=== PATIENT | female | born 1970 | race Hispanic/Latino ===

== ENCOUNTER 2018-09-29 12:57 | Outpatient (CLI) | payer OTHER | END 2018-09-29 12:58 | disposition home or self-care (01) | LOC: C.PAT 12:57 | DX: N94.9 Unspecified condition associated with female genital organs and menstrual cycle (principal); R10.2 Pelvic and perineal pain ==

== ENCOUNTER 2018-10-01 07:32 | Observation (INO) | payer OTHER ==
[2018-10-01 08:28] VITALS: BMI 26.5
[2018-10-01] MEDS ORDERED: Propofol 10 mg/ml Inj (20 ML) ONE ×2 (08:30→08:31)
[2018-10-01] MEDS ORDERED: Midazolam 2 MG/2 ML VIAL ONE (08:31)
[2018-10-01] MEDS ORDERED: Bupivacaine 0.25% 20 ML INJ IJ ONE (09:01)
[2018-10-01] MEDS ORDERED: Lidocaine/Epinephrine 1% 1:100000 10 ML IJ ONE (09:02)
[2018-10-01] MEDS ORDERED: ceFAZolin 1 gm in NS 2 GM/200 ML BAG IVPB ONE (09:21)
[2018-10-01] MEDS ORDERED: Rocuronium 10 mg/ml (5 ml) ONE (09:48)
[2018-10-01] MEDS ORDERED: Bupivacaine HCl 0.5% PF (10 ml) Inj ONE (11:35)
[2018-10-01] MEDS ORDERED: Oxycodone/Acetaminophen 5/325 mg Tab PO PRN ×2 (12:31→13:23)
[2018-10-01] MEDS ORDERED: BUPIVACAINE 0.125%/0.9% NACL 600 ML IJ ONE (13:00)
[2018-10-01] MEDS: HYDROmorphone 0.5 mg/0.5 ml ISec IVP PRN ×2 (13:09→13:32)
[2018-10-01] MEDS ORDERED: Lactated Ringer's 1,000 ML IV SCH (13:30)
[2018-10-01] MEDS ORDERED: cefOXitin IV 1 gm in Dextrose 1 GM/50 ML BAG IVPB SCH (14:00)
[2018-10-01] MEDS: cefOXitin IV 1 gm in Dextrose 1 GM/50 ML BAG IVPB SCH (18:21)
[2018-10-02] MEDS: cefOXitin IV 1 gm in Dextrose 1 GM/50 ML BAG IVPB SCH ×2 (01:18→08:22)
[2018-10-02] MEDS ORDERED: Levothyroxine 25 MCG TAB PO SCH (06:30)
[2018-10-02 08:17] LABS: BASO % 0.5 % (0.0-2.0); EOS # 0.1 K/uL (0.0-0.7); EOS % 0.9 % (0.0-4.0); HEMOGLOBIN 11.6 g/dL (11.0-16.0); LYMPH # 0.9 K/uL (1.0-4.3); LYMPH % 12.5 % (20.0-40.0); MEAN PLATELET VOLUME 9.3 fL (7.2-11.7); MONO # 0.7 K/uL (0.0-0.8); MONO % 9.6 % (0.0-10.0); NEUT # 5.8 K/uL (1.8-7.0); NEUT % 76.5 % (50.0-75.0); RBC 3.87 Mil/uL (3.80-5.20); RED CELL DISTRIBUTION WIDTH 13.1 % (11.5-14.5); WHITE BLOOD COUNT 7.5 K/uL (4.8-10.8)
[2018-10-02 08:25] LABS: BLOOD UREA NITROGEN 12 mg/dL (7-17); CALCIUM 8.5 mg/dl (8.6-10.4); GFR NON-AFRICAN AMERICAN > 60
[2018-10-02 08:31] VITALS: BP 95/86; PULSE 85; RESP 18; TEMP 98.4; O2SAT 99
[2018-10-02] MEDS ORDERED: Potassium Chloride 20 mEq ER Tab PO ONE (10:00)
[2018-10-02] MEDS ORDERED: Simethicone 80 mg Chewtab PO SCH (14:00)
--- NOTE | 2018-10-06 13:56 | OP ---
PROCEDURE DATE: 10/01/2018 PREOPERATIVE DIAGNOSES: Pelvic pain, adnexal mass, ovarian cyst, bladder pain, bladder pressure, adhesion. POSTOPERATIVE DIAGNOSES: Pelvic pain, adnexal mass, ovarian cyst, bladder pain, bladder pressure, adhesion with retroperitoneal fibrosis. PROCEDURE PERFORMED: Total robotic hysterectomy, bilateral salpingectomy, left oophorectomy, cystoscopy, bilateral ureteral stent, catheterization, bilateral ureterolysis, lysis of adhesions of enlarged 250 g uterus. SURGEON: Destiny Cruz MD CLINICAL DATA SPECIALIST: JASON Orellana TYPE OF ANESTHESIA: General endotracheal. OPERATIVE FINDINGS: Enlarged uterus, normal appearing tubes, abnormal appearing large left adnexal mass 10 cm adherent to the left pelvic sidewall, right ovary appeared normal adherent to pelvic sidewall as well, adhesions noted of omentum to anterior abdominal wall. ESTIMATED BLOOD LOSS: 50 mL. SPECIMEN: Uterus, left and right fallopian tube, left ovary with left ovarian cyst. URINE OUTPUT: 1200 mL. Emily Kaminski, neurosurgical nurse practitioner, was present for the entire case essential in gaining entry, retractions, exposure for robotic entry, docking the robot, removing the specimen, obtaining hemostasis, closing all layers and was present for the entire case. DESCRIPTION OF PROCEDURE: The patient was taken to the operating room where she was given general anesthesia. Once it was found to be adequate, she was placed on the operating table in dorsal supine position with legs supported using stirrups. The patient was then prepped and draped in the usual sterile fashion. A timeout was performed to confirm correct patient and correct procedure. Bimanual exam was performed with the above-mentioned findings. The patient was given preoperative prophylactic antibiotics. After that time-out was performed, a cystoscope was then inserted into the urethra. There were bilateral ureteral jets noted. No trigone noticed. No masses. No abnormalities noted. Bilateral ureteral jets were noted. A stent was then placed which was advanced appropriately and 5 mL of IC-Green was then inserted on either side. The cystoscope was then removed and a Jacobo catheter was then inserted. Following this, the patient was then placed in Trendelenburg position. The Garces retractor was placed on the anterior and posterior fornix of the vagina. The cervix was adequately visualized. A single-tooth tenaculum was placed on the anterior lip of the cervix. The uterus was then sounded to 10 cm. Following this, the cervix was sequentially dilated to allow for introduction of the VCare uterine manipulator which was insufflated with 10 mL of air. The Green cup was then carefully applied to the cervix had been removed. The patient's legs were then repositioned. The surgeon then re-gloved and attention was then turned to the abdomen. A supraumbilical skin incision was made 8 mm after the administration of local anesthetic, the fascia was then tented with two Benny clamps, this fascial incision was made. Consuelo device was then inserted . The trocar was then inserted. The abdomen was then insufflated with a normal opening pressure of 50 mmHg. The laparoscope was then inserted. There were adhesions noted with an enlarged left adnexal mass adherent to the pelvic sidewall and enlarged uterus. Following this, an 8-mm skin incision was placed in the right lower quadrant after the administration of left lower quadrant and a 12-mm skin incision was made in the left upper quadrant as accessory port. A blunt trocar was then inserted. The bowels were then retracted out of the visual field; and using a LigaSure device, omental adhesions were noted to the anterior abdominal wall which were carefully lysed. Following this, there was set of visualization of the uterine cavity. The operative da Kentrell device was then docked as per appropriate protocol. The endoscope was then targeted, placed in the second arm. A Monopolar device was then inserted into arm 3, vessel seal was placed in 1. Following this, the assistant basketball coach was used to manipulate the uterus in the anteverted retraction. Initially, there was left pelvic adnexal mass noted to the pelvic sidewall which was adherent. The IP ligament was identified and the ureter were carefully dissected using IC-Green as there was extensive retroperitoneal fibrosis. Once the ureter was carefully dissected, the IP ligament was able to be cauterized using LigaSure device away from the ureter. After it was cauterized and cut, the uterine ovarian ligament was cauterized and cut carefully using the vessel seal device and the left adnexa was removed within a bag specimen and placed into the cul-de-sac. Following this, the round ligament on the left side was carefully cauterized and cut and the anterior portion of the broad ligament was dissected using the monopolar device. The round ligament on the right side was cauterized and cut using the vessel seal device. The right ovary was adherent to the pelvic sidewall, and in similarity, the ureter was noted to be in close proximity. The ureterolysis was then performed and the utero-ovarian was ligated, cut, cauterized and removed. In addition, along the mesosalpinx of the fallopian tube which was carefully dissected and cut using the LigaSure device. The anterior portion of the broad on the right side was carefully dissected to continuation of the bladder flap. The uterine arteries were then carefully dissected and cauterized using the LigaSure device. An anterior colpotomy was performed using the MyoSure device and carefully continued posterior 360 degrees until the specimen had been completely amputated. Following this, the specimen had been removed through the vagina with right fallopian tube, the uterus and cervix in addition to the left tube and ovary in the EndoCatch bag. All specimens had been removed. A V-Loc suture was then used 6 inches to close the vaginal cuff in a continuous manner. After the cuff had been reapproximated and closure with thorough irrigation, there was good hemostasis noted. The IC-Green was then re-elicited. All instruments were removed. The abdomen was desufflated. The fascia of the 12-mm and the supraumbilical incision was reapproximated and closed using a Ur 6-0 Vicryl. The skin was reapproximated and closed with 4-0 Monocryl in a subcuticular fashion. The abdomen was cleaned. Steri-Strips applied and island dressing were placed. Following this, after all of the trocars had been removed and the operative da Kentrell robot had been undocked and the skin had been closed, Jacobo catheter had been removed. The cystoscope was then reinserted and bilateral ureteral jets noted. The cystoscope and Jacobo were re-introduced. At the end of the procedure, all needles, sponge, and instrument counts were noted as correct x2. The patient tolerated the procedure well and was transferred to the recovery room in stable condition. Destiny Cruz MD
== END 2018-10-02 15:16 | disposition hospice, home (50) ==
LOC: C.SDS 07:32 → C.4M 12:31
PROVIDERS: ADMIT Obstetrics & Gynecology; ATTEND Obstetrics & Gynecology
DX: N94.9 Unspecified condition associated with female genital organs and menstrual cycle (principal); R10.2 Pelvic and perineal pain; N83.209 Unspecified ovarian cyst, unspecified side; K66.0 Peritoneal adhesions (postprocedural) (postinfection); N73.6 Female pelvic peritoneal adhesions (postinfective); N85.2 Hypertrophy of uterus; N13.5 Crossing vessel and stricture of ureter without hydronephrosis
CPT/HCPCS: 36415; 52332; 58552; 80048; 85025; 86850; 86900; 88309; 96365; 96375; 96376; G0378; J0690; J0694; J1100; J1170; J1885; J2001; J2250; J2405; J2704; J3010; J7120; S2900